=== PATIENT | female | born 1940 | race Caucasian/White ===

== ENCOUNTER 2017-05-25 09:10 | Emergency (ER) | payer MEDICARE, OTHER ==
[2017-05-25 09:24] VITALS: BP 165/63
--- NOTE | 2017-05-25 09:46 | EDM.PDOC ---
ED HPI GENERAL MEDICAL PROBLEM - General Chief Complaint: Head Injury Stated Complaint: FELL SUN, HIT BACK OF HEAD, TAILBONE, HIP AREA Time Seen by Provider: 05/25/17 09:35 Source of Information: Reports: Patient History Limitations: Reports: No Limitations - History of Present Illness INITIAL COMMENTS - FREE TEXT/NARRATIVE: This 76 yo female patient reports to the ED with posterior head pain, right hip and pelvic pain. The patient reports she fell 1-2 times on Tuesday and has continued to have pain since that time. The patient reports she felt dizzy on Tuesday prior to the fall, but has not had any additional dizzy spells since that time. The patient reports she called the Clinic, but was advised to come to the ED for evaluation and treatment. The patient reports she has been ambulating, but has noticed increased pain in her right hip with movement. The patient reports she has not been able to rest on the back of her head since the fall due to increased discomfort. Onset Date: 05/22/17 Duration: Constant Location: Reports: Head (posterior ), Lower Extremity, Right Quality: Reports: Ache, Dull Severity: Moderate Worsens with: Reports: Other (stretching (right hip) and pressure posterior head ) Context: Reports: Other Associated Symptoms: Reports: No Other Symptoms Posterior Head Pain Score (Numeric/FACES): 7 Right Hip Pain Score (Numeric/FACES): 8 - Related Data Allergies Allergy/AdvReac Type Severity Reaction Status Date / Time ciprofloxacin [From Cipro] Allergy Cannot Verified 05/25/17 09:24 Remember ciprofloxacin HCl Allergy Cannot Verified 05/25/17 09:24 [From Cipro] Remember levofloxacin [From Levaquin] Allergy Cannot Verified 05/25/17 09:24 Remember naproxen sodium [From Aleve] Allergy Stomach Verified 05/25/17 09:24 Upset Penicillins Allergy Swelling Verified 05/25/17 09:24 rosuvastatin calcium Allergy Cannot Verified 05/25/17 09:24 [From Crestor] Remember sulfacetamide Allergy Cannot Verified 05/25/17 09:24 Remember Home Meds: Home Meds Aspirin [Halfprin] 81 mg PO DAILY 05/07/14 [History] Gabapentin 600 - 900 mg PO TID 05/07/14 [History] Lisinopril 10 mg PO DAILY 05/07/14 [History] Pravastatin [Pravachol] 40 mg PO BEDTIME 05/07/14 [History] Zolpidem [Ambien] 10 mg PO BEDTIME 05/07/14 [History] metFORMIN [Glucophage] 1,000 mg PO BID 05/07/14 [History] Alendronate Sodium [Alendronate] 1 tab PO WEEKLY 10/13/15 [History] Anastrozole [Arimidex] 1 tab PO DAILY 10/13/15 [History] Cholecalciferol (Vitamin D3) [Vitamin D3] 1 tab PO DAILY 10/13/15 [History] MV,Ca,Min/Iron Fum/FA/Vit K [Multi For Her Tablet] 1 tab PO DAILY 10/13/15 [ History] Vitamin B Complex 1 tab PO DAILY 10/13/15 [History] Past Medical History HEENT History: Reports: Cataract Cardiovascular History: Reports: Heart Murmur, High Cholesterol, Hypertension Respiratory History: Reports: None Gastrointestinal History: Reports: None Genitourinary History: Reports: None 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: , 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 Musculoskeletal History: Reports: Arthritis Neurological History: Reports: None Psychiatric History: Reports: None Endocrine/Metabolic History: Reports: Diabetes, Type II Hematologic History: Reports: None Immunologic History: Reports: None Oncologic (Cancer) History: Reports: Breast Dermatologic History: Reports: None - Infectious Disease History Infectious Disease History: Reports: Chicken Pox, Measles, Mumps - Past Surgical History HEENT Surgical History: Reports: Adenoidectomy, Cataract Surgery, Tonsillectomy Respiratory Surgical History: Reports: None GI Surgical History: Reports: Cholecystectomy, Colonoscopy Female Surgical History: Reports: Breast Biopsy, Tubal Ligation Neurological Surgical History: Reports: Other (See Below) Musculoskeletal Surgical History: Reports: None Oncologic Surgical History: Reports: Mastectomy Social & Family History - Family History Family Medical History: Noncontributory - Tobacco Use Smoking Status *Q: Never Smoker Second Hand Smoke Exposure: No - Caffeine Use Caffeine Use: Reports: Coffee - Alcohol Use Days Per Week of Alcohol Use: 0 - Recreational Drug Use Recreational Drug Use: No - Living Situation & Occupation Living situation: Reports: Occupation: Retired ED ROS GENERAL - Review of Systems Review Of Systems: ROS reveals no pertinent complaints other than HPI. ED EXAM, HEAD INJURY - Physical Exam Exam: See Below Exam Limited By: No Limitations General Appearance: Alert, WD/WN, Mild Distress Head: Scalp Abrasions (posterior), Scalp Tenderness (posterior) Nexus Criteria: No: Posterior, Midline Cervical Tenderness, Evidence of Intoxication, Altered Level of Consciousness, Focal Neurological Deficit, Painful Distraction Injuries Eyes: Bilateral Eye: EOMI, Normal Inspection, PERRL Ears: Normal External Exam, Normal Canal, Hearing Grossly Normal, Normal TMs Nose: Normal Inspection, Normal Mucousa, No Blood Throat/Mouth: Normal Inspection, Normal Lips, Normal Teeth, Normal Gums, Normal Oropharynx, Normal Voice, No Airway Compromise Neck: Non-Tender, Full Range of Motion, Normal Alignment, Normal Inspection Respiratory: No Respiratory Distress, Lungs Clear, Normal Breath Sounds, No Accessory Muscle Use, Chest Non-Tender Cardiovascular: Normal Peripheral Pulses, Regular Rate, Rhythm, No Edema, No Gallop, No JVD, No Murmur, No Rub GI/Abdominal Exam: Normal Bowel Sounds, Soft, Non-Tender, No Organomegaly, No Distention, No Abnormal Bruit, No Mass (Female) Exam: Deferred Rectal (Female) Exam: Deferred Back Exam: Normal Inspection, Full Range of Motion Extremities: Non-Tender, No Pedal Edema, Normal Capillary Refill, Leg Pain ( right hip and right buttocks), Limited Range of Motion (due to pain in the right hip) Neurologic: supervisor filtration II-XII nml As Tested, Alert, Normal Mood/Affect, Oriented x 3 Skin: Normal Color, Warm/Dry - Bety Coma Score Best Eye Response (Bety): (4) Open Spontaneously Best Verbal Response (Bety): (5) Oriented Best Motor Response (Barnard): (6) Obeys Commands Barnard Total: 15 Course - Vital Signs Last Recorded V/S: Last Vital Signs Temp 36.3 C 05/25/17 09:17 Pulse 105 H 05/25/17 09:17 Resp 18 05/25/17 09:17 BP 165/63 H 05/25/17 09:17 Pulse Ox 98 05/25/17 09:17 Departure - Departure Time of Disposition: 10:50 Disposition: Home, Self-Care 01 Condition: Fair Clinical Impression: Fall from ground level Concussion Qualifiers: Encounter type: initial encounter Loss of consciousness presence/duration: with LOC of unspecified duration Qualified Code(s): S06.0X9A - Concussion with loss of consciousness of unspecified duration, initial encounter Contusion of right hip Qualifiers: Encounter type: initial encounter Qualified Code(s): S70.01XA - Contusion of right hip, initial encounter - Discharge Information Forms: ED Department Discharge Care Plan Goals: The patient was advised of the examination, x-ray and CT results during the visit. The patient was encouraged to rest over the next 24-48 hours. The patient should follow-up with her primary care facility due to the frequent falls. If the patient has any additional symptoms or concerns, the patient should follow-up with her primary care facility or return to the emergency department.
--- NOTE | 2017-05-25 10:25 | CR ---
CLINICAL HISTORY: 76-year-old female injured in a fall (Tuesday). INTERPRETATION: AP pelvis/hips and AP/frog lateral views of the right hip unremarkable. Homogeneous normal bone density for age this patient with chronic arthritic changes lower lumbar spin e. Symmetric spacing normal-appearing SI and hip joints. Arteriovascular calcifications in the soft tissues. No sign of pathologic skeletal lesion, pelvic or either hip fracture/dislocation.
--- NOTE | 2017-05-25 10:41 | CT ---
CLINICAL HISTORY: 76-year-old hypertensive 120 pound diabetic female who fell (on Tuesday). SCAN TECHNIQUE: Volume acquisition of data from an emergency unenhanced CT scan of the head and brain obtained with the patient lying supine on the Siemens multislice CT scanner [place], [place]. All data archived in the PACS system for storage and study (bone/brain [facility]). INTERPRETATION: Age-appropriate atrophy. Physiologic midline pineal, choroid plexus and falx calcific ations. No sign of skull fracture, underlying brain contusion, or abnormal extracerebral/intracranial epidura l or subdural hematoma. No sign of ischemic infarct, encephalomalacia or acute intracerebral/intraventricular/subarachnoid bl eed. Cerebellum and brainstem unremarkable (arteriosclerotic vascular calcifications base of the skull). CONCLUSION: Usual signs of senescence. No skull fracture or evidence of closed head trauma.
== END 2017-05-25 11:02 | disposition home or self-care (01) ==
LOC: DL.ED 09:10
DX: S06.0X9A Concussion with loss of consciousness of unspecified duration, initial encounter (principal); S70.01XA Contusion of right hip, initial encounter; S00.01XA Abrasion of scalp, initial encounter; I10 Essential (primary) hypertension; E11.9 Type 2 diabetes mellitus without complications; E78.00 Pure hypercholesterolemia, unspecified; Z88.6 Allergy status to analgesic agent; Z88.0 Allergy status to penicillin; Z88.2 Allergy status to sulfonamides; Z79.82 Long term (current) use of aspirin; Z79.899 Other long term (current) drug therapy; Z79.84 Long term (current) use of oral hypoglycemic drugs; Z88.1 Allergy status to other antibiotic agents; W19.XXXA Unspecified fall, initial encounter
CPT/HCPCS: 70450; 99283; 99284

== ENCOUNTER 2017-09-23 08:56 | Day surgery (SDC) | payer MEDICARE, OTHER ==
[~2017-09-23 08:56] MED LIST: Lactated Ringers 1,000 ML IV SCH; Midazolam 1 MG/ML 2 ML SDV ONE; fentaNYL 100 MCG/2 ML SDV ONE
[2017-09-23] MEDS ORDERED: Midazolam 1 MG/ML 2 ML SDV IV ONE ×3 (08:57→10:27)
[2017-09-23] MEDS ORDERED: Benzocaine 20% Oral Spray 59.2 ML Canister ONE (09:05)
[2017-09-23] MEDS ORDERED: Benzocaine 20% Oral Spray 59.2 ML Canister MUCMEM ONE (10:27)
[2017-09-23] MEDS ORDERED: Midazolam 1 MG/ML 2 ML SDV ONE (12:04)
--- NOTE | 2017-09-23 13:11 | OR ---
DATE: 09/23/2017 PREOPERATIVE DIAGNOSES: Gastroesophageal reflux disease symptoms and marked weight loss. POSTOPERATIVE DIAGNOSES: Gastroesophageal reflux disease symptoms and marked weight loss. PROCEDURE: Esophagogastroduodenoscopy with photographs. ANESTHESIA: Conscious sedation with IV Versed. SPECIMEN: None. OPERATIVE FINDINGS: A small 2 cm hiatal hernia, otherwise, normal. RECOMMENDATION: Her weight loss is not caused by anything I can see in the upper GI system. She does have a small hiatal hernia, but no evidence of significant reflux esophagitis. Gastric anatomy and duodenum are normal. INDICATION FOR PROCEDURE: This 77-year-old female has GERD and weight loss. PROCEDURE IN DETAIL: After adequate preparation, a gastroscope was inserted into the esophagus. This was passed down through the EG junction. She shows a small 2 cm hiatal hernia, but no significant distal esophagitis. No abnormal gross or bleeding sites. The scope was advanced into the stomach. Both forward and retroflexed views were done and are normal. The scope was advanced through the pylorus, and the first and second part of the duodenum are also normal. Photograph of the duodenal bulb and the EG junction had been taken. Air was suctioned from the stomach and the scope removed. [facility] /[id number]
[2017-09-23 13:45] VITALS: BP 133/74
== END 2017-09-23 11:42 | disposition home or self-care (01) ==
LOC: DL.ENDO 08:56
PROVIDERS: ATTEND Surgery
DX: K21.9 Gastro-esophageal reflux disease without esophagitis (principal); K44.9 Diaphragmatic hernia without obstruction or gangrene; R63.4 Abnormal weight loss; Z88.0 Allergy status to penicillin; Z88.2 Allergy status to sulfonamides; Z90.49 Acquired absence of other specified parts of digestive tract; Z90.89 Acquired absence of other organs; Z98.51 Tubal ligation status
CPT/HCPCS: 43235; J2250; J7120

== ENCOUNTER 2018-06-22 07:01 | Day surgery (SDC) | payer MEDICARE, OTHER ==
[~2018-06-22 07:01] MED LIST changes: -Lactated Ringers 1,000 ML IV SCH
[2018-06-22] MEDS ORDERED: Midazolam 1 MG/ML 2 ML SDV IV ONE ×5 (07:02→08:59)
[2018-06-22] MEDS ORDERED: fentaNYL 100 MCG/2 ML SDV IV ONE ×3 (07:02→09:01)
[2018-06-22] MEDS ORDERED: Dextrose 5%-0.45% NaCl 1,000 ML IV SCH (07:15)
--- NOTE | 2018-06-22 10:46 | OR ---
DATE: 06/22/2018 PREOPERATIVE DIAGNOSES: Weight loss and anemia. POSTOPERATIVE DIAGNOSES: Weight loss and anemia. PROCEDURE: Total colonoscopy. ANESTHESIA: Conscious sedation with IV Versed and fentanyl. SPECIMEN: None. OPERATIVE FINDINGS: Normal colonoscopy. RECOMMENDATION: Followup colonoscopy as needed for symptoms only. INDICATION FOR PROCEDURE: This 77-year-old female had a history of breast cancer. She had a 25-pound or so weight loss that has been unintentional, has a low hemoglobin of 10. PROCEDURE IN DETAIL: After adequate preparation, a colonoscope was inserted into the rectum. This was easily passed all the way to the cecum. Confirmation of the cecum was made by visualization of the ileocecal valve and palpation in the right lower quadrant. The bowel prep was good. On withdrawal of the scope, no abnormalities were noted. Anal and rectal examinations are also normal. Air was suctioned from the colon, and the scope was removed. [facility] /[id number]
[2018-06-22 14:13] VITALS: BP 112/55
== END 2018-06-22 10:50 | disposition home or self-care (01) ==
LOC: DL.ENDO 07:01
PROVIDERS: ATTEND Surgery
DX: R63.4 Abnormal weight loss (principal); D64.9 Anemia, unspecified; Z88.0 Allergy status to penicillin; Z88.6 Allergy status to analgesic agent; Z88.2 Allergy status to sulfonamides; Z88.1 Allergy status to other antibiotic agents; Z88.8 Allergy status to other drugs, medicaments and biological substances; Z85.3 Personal history of malignant neoplasm of breast
CPT/HCPCS: 45378; J2250; J3010; J7042

== ENCOUNTER 2018-07-19 08:27 | Day surgery (SDC) | payer MEDICARE, OTHER ==
[~2018-07-19 08:27] MED LIST changes: +Benzocaine 20% Topical Spray UD MUCMEM ONE; +Dextrose 5%-0.45% NaCl 1,000 ML IV SCH; -fentaNYL 100 MCG/2 ML SDV ONE
[2018-07-19] MEDS ORDERED: Midazolam 1 MG/ML 2 ML SDV IV ONE ×3 (08:28→09:41)
[2018-07-19] MEDS ORDERED: Benzocaine 20% Topical Spray UD MUCMEM ONE (09:38)
--- NOTE | 2018-07-19 10:15 | OR ---
DATE: 07/19/2018 PREOPERATIVE DIAGNOSES: 25-pound weight loss and anemia. POSTOPERATIVE DIAGNOSES: 25-pound weight loss and anemia. PROCEDURE: EGD. ANESTHESIA: Conscious sedation with 2 mg of IV Versed. SPECIMEN: None. FINDINGS: Normal EGD. RECOMMENDATION: Follow up as needed. INDICATION FOR PROCEDURE: This 78-year-old female has had a 23-pound weight loss and anemia with a hemoglobin in the 10 range. She had a colonoscopy last month that was normal. She is here for EGD. DESCRIPTION OF PROCEDURE: After adequate preparation, a gastroscope was inserted into the esophagus. This was passed down to the distal esophagus. Examination of that was normal. She showed no evidence of bleeding sites, strictures, or masses. The scope was advanced through the EG junction into the stomach. Both forward and retroflexed views were done and were normal. A photograph of this was taken. The scope was advanced through the pylorus, and the first and second parts of the duodenum were also normal and a subsequent photograph was also taken. Air was suctioned from the stomach, and the scope removed. [facility] /[id number]
[2018-07-19 11:07] VITALS: BP 124/63
== END 2018-07-19 11:13 | disposition home or self-care (01) ==
LOC: DL.ENDO 08:27
PROVIDERS: ATTEND Surgery
DX: R63.4 Abnormal weight loss (principal); D64.9 Anemia, unspecified; Z88.0 Allergy status to penicillin; Z88.2 Allergy status to sulfonamides; Z88.8 Allergy status to other drugs, medicaments and biological substances
CPT/HCPCS: 43235; A9270-GY; J2250; J7042

== ENCOUNTER → 2018-09-29 | Outpatient (CLI) | payer MEDICARE, OTHER | LOC: DL.CLIN 13:55 | PROVIDERS: ATTEND Nurse Practitioner | DX: R10.9 Unspecified abdominal pain (principal) ==

== ENCOUNTER → 2018-10-12 | Outpatient (CLI) | payer MEDICARE, OTHER | LOC: DL.MRI 12:25 | PROVIDERS: ATTEND Nurse Practitioner | DX: M54.5 Low back pain (principal); M47.817 Spondylosis without myelopathy or radiculopathy, lumbosacral region; M51.34 Other intervertebral disc degeneration, thoracic region | CPT/HCPCS: 72146; 72148 ==

== ENCOUNTER 2023-09-04 15:39 | Emergency (ER) | payer MEDICARE, OTHER ==
[2023-09-04 16:06] VITALS: BP 135/94; PULSE 106
== END 2023-09-04 16:42 | disposition home or self-care (01) ==
LOC: DL.ED 15:39
DX: M62.838 Other muscle spasm (principal); I10 Essential (primary) hypertension; E11.9 Type 2 diabetes mellitus without complications; E78.00 Pure hypercholesterolemia, unspecified; Z79.82 Long term (current) use of aspirin; Z79.899 Other long term (current) drug therapy; Z79.84 Long term (current) use of oral hypoglycemic drugs; Z88.0 Allergy status to penicillin; Z88.1 Allergy status to other antibiotic agents; Z88.2 Allergy status to sulfonamides; Z88.8 Allergy status to other drugs, medicaments and biological substances
CPT/HCPCS: 99283; 99284